=== PATIENT | female | born 2000 ===

== ENCOUNTER 2021-01-26 14:55 | Outpatient (REF) | payer MEDICARE, MEDICAID, SELFPAY ==
[2021-01-26 20:14] LABS: ALT 32 U/L (14-59); AST 15 U/L (15-37); Albumin 3.7 g/dL (3.4-5.0); Alkaline Phosphatase 75 U/L (46-116); BUN 6 mg/dL (7-18); Bilirubin, Total 0.4 mg/dL (0.2-1.0); CREATININE 0.6 mg/dL (0.55-1.02); Calcium 9.2 mg/dL (8.5-10.1); Calculated LDL 99 mg/dL (<100); Chloride 107 mmol/L (98-107); Cholesterol 161 mg/dL (<200); Glucose 79 mg/dL (74-106); HDL Cholesterol 41 mg/dL (40-60); Potassium 4.2 mmol/L (3.5-5.1); Sodium 142 mmol/L (136-145); TSH 2.31 uIU/mL (0.36-3.74); Triglyceride 109 mg/dL (<150)
== END 2021-01-26 14:56 | disposition home or self-care (01) ==
LOC: NCHCN 14:55
PROVIDERS: Visit Provider Nurse Practitioner Family
DX: Z68.42 Body mass index [BMI] 45.0-49.9, adult (principal); Z00.00 Encounter for general adult medical examination without abnormal findings
CPT/HCPCS: 80053; 80061; 84443

== ENCOUNTER 2023-05-18 15:23 | Outpatient (REF) | payer MEDICARE, MEDICAID, SELFPAY ==
[2023-05-18 20:47] LABS: ALT 28 U/L (14-59); AST 18 U/L (15-37); Albumin 3.6 g/dL (3.4-5.0); Alkaline Phosphatase 70 U/L (46-116); Anion Gap 10.5 mmol/L (3-11); BUN 14 mg/dL (7-18); Bilirubin, Total 0.5 mg/dL (0.2-1.0); CO2 24.5 mmol/L (21.0-32.0); CREATININE 0.6 mg/dL (0.55-1.02); Calcium 9.4 mg/dL (8.5-10.1); Chloride 108 mmol/L (98-107); Estimated GFR 128.46 (mL/min/1.73m2); Glucose 84 mg/dL (74-106); Potassium 4.5 mmol/L (3.5-5.1); Sodium 143 mmol/L (136-145); TSH 3.08 uIU/mL (0.36-3.74); Total Protein 7.6 g/dL (6.4-8.2)
[2023-05-18 20:52] LABS: Hemoglobin A1C 5.5 % (<5.7)
== END 2023-05-18 15:24 | disposition home or self-care (01) ==
LOC: NCHCN 15:23
PROVIDERS: Visit Provider Nurse Practitioner Family
DX: Z68.42 Body mass index [BMI] 45.0-49.9, adult (principal); E66.9 Obesity, unspecified
CPT/HCPCS: 80053; 83036; 84443